=== PATIENT | male | born 1960 | race African-American/Black ===

== ENCOUNTER 2025-01-05 21:05 | Inpatient (IN) | payer MEDICAID ==
[~2025-01-05] VITALS: Ht 185.4 cm; Wt 95.3 kg
[2025-01-05 21:15] VITALS: BP 153/89; PULSE 75; RESP 18; TEMP 36.4; O2SAT 98
[2025-01-05 21:30] VITALS: BP 153/75; PULSE 75; RESP 18; TEMP 36.4736
[2025-01-05] MEDS ORDERED: DOCUSATE SODIUM 250MG CAPSULE PO PRN (22:00)
[2025-01-05] MEDS ORDERED: SENNOSIDES/DOCUSATE SOD 8.6/50MG TABLET PO PRN (22:00)
[2025-01-06 06:21] LABS: BASOPHILS % 0.4 % (0.0-2.0); EOSINOPHILS % 0.5 % (0.0-5.0); HEMATOCRIT. 44.0 % (42.0-52.0); HEMOGLOBIN. 14.5 g/dL (14.0-18.0); LYMPHOCYTES % 19.3 % (20.0-50.0); MEAN PLATELET VOLUME 8.4 fl (7.4-10.4); MONOCYTES % 9.3 % (2.0-8.0); NEUTROPHILS % 70.5 % (40.0-76.0); PLATELET 192 x1000/uL (130-400); RED BLOOD CELL COUNT 5.17 mill/uL (4.7-6.1); RED CELL DISTRIBUTION WIDTH 14.1 % (11.6-14.6)
[2025-01-06 06:24] LABS: CREATININE 1.2 mg/dL (0.6-1.3)
[2025-01-06 06:25] LABS: UREA NITROGEN BLOOD 16 mg/dL (9-23)
[2025-01-06 06:26] LABS: ASPARTATE AMINOTRANSFERASE 26 IU/L (<34)
[2025-01-06 06:27] LABS: BILIRUBIN TOTAL 1.7 mg/dL (0.1-1.0); PROTEIN TOTAL 6.9 g/dL (6.0-8.3)
[2025-01-06 08:00] VITALS: BP 157/105; PULSE 97; RESP 17; TEMP 36.1; O2SAT 97
[2025-01-06] MEDS: CLOPIDOGREL 75MG TABLET PO SCH (08:47)
[2025-01-06] MEDS: ASPIRIN 81MG TABLET PO SCH (08:48)
[2025-01-06] MEDS: LISINOPRIL 5MG TABLET PO SCH (08:48)
[2025-01-06] MEDS: HEPARIN 5000 UNITS/ML VIAL SUBCUT SCH ×2 (11:12→19:10)
[2025-01-06 20:00] VITALS: BP 134/96; PULSE 82; RESP 20; TEMP 36.9; O2SAT 98
[2025-01-06] MEDS: ATORVASTATIN CALCIUM 40MG TABLET PO SCH (20:37)
[2025-01-07 08:00] VITALS: BP 140/93; PULSE 97; RESP 18; TEMP 36.6; O2SAT 97
[2025-01-07 09:12] LABS: BASOPHILS % 0.5 % (0.0-2.0); EOSINOPHILS % 0.3 % (0.0-5.0); HEMATOCRIT. 46.2 % (42.0-52.0); HEMOGLOBIN. 15.0 g/dL (14.0-18.0); LYMPHOCYTES % 20.3 % (20.0-50.0); MEAN PLATELET VOLUME 8.6 fl (7.4-10.4); MONOCYTES % 7.2 % (2.0-8.0); NEUTROPHILS % 71.7 % (40.0-76.0); PLATELET 194 x1000/uL (130-400); RED BLOOD CELL COUNT 5.39 mill/uL (4.7-6.1); RED CELL DISTRIBUTION WIDTH 13.8 % (11.6-14.6)
[2025-01-07 09:30] LABS: CREATININE 1.3 mg/dL (0.6-1.3); TRIGLYCERIDE 100 mg/dL (0-150); UREA NITROGEN BLOOD 18 mg/dL (9-23); VITAMIN B12 SERUM 1513 pg/mL (211-911)
[2025-01-07 09:31] LABS: FOLIC ACID (FOLATE) SERUM 13.99 ng/mL (>5.38); LDL CHOLESTEROL 112 mg/dL (5-100)
[2025-01-07 09:32] LABS: ASPARTATE AMINOTRANSFERASE 22 IU/L (<34); BILIRUBIN DIRECT 0.5 mg/dL (<=3.0); BILIRUBIN TOTAL 1.7 mg/dL (0.1-1.0); PROTEIN TOTAL 7.5 g/dL (6.0-8.3)
[2025-01-07] MEDS: THIAMINE HCL 100MG TABLET PO SCH (09:44)
[2025-01-07] MEDS: FOLIC ACID 1MG TABLET PO SCH (09:44)
[2025-01-07 18:01] VITALS: BP 142/95; PULSE 80
[2025-01-07] MEDS: ATORVASTATIN CALCIUM 40MG TABLET PO SCH (21:53)
[2025-01-07] MEDS: MELATONIN 3MG TABLET PO SCH (21:53)
[2025-01-07] MEDS: LISINOPRIL 5MG TABLET PO SCH (21:54)
[2025-01-08 07:19] LABS: ASPARTATE AMINOTRANSFERASE 30 IU/L (<34)
[2025-01-08 07:20] LABS: BILIRUBIN DIRECT 0.4 mg/dL (<=3.0); BILIRUBIN TOTAL 1.5 mg/dL (0.1-1.0); PROTEIN TOTAL 7.0 g/dL (6.0-8.3)
[2025-01-08 08:00] VITALS: BP 141/86; PULSE 84; RESP 18; TEMP 36.5; O2SAT 97
[2025-01-08] MEDS: ERGOCALCIFEROL 50000UNITS CAPSULE PO SCH (13:42)
[2025-01-08 18:07] LABS: HEPATITIS A AB IGM NEGATIVE (Negative)
[2025-01-08 18:08] LABS: HEPATITIS B CORE AB IGM NEGATIVE (Negative); HEPATITIS C AB NON REACTIVE (Neg) (Negative)
[2025-01-08 20:00] VITALS: BP 118/76; PULSE 100; RESP 18; TEMP 36.6; O2SAT 98
[2025-01-09 08:00] VITALS: BP 119/79; PULSE 100; RESP 18; TEMP 36.4; O2SAT 97
[2025-01-09 12:47] LABS: BASOPHILS % 0.3 % (0.0-2.0); EOSINOPHILS % 0.3 % (0.0-5.0); HEMATOCRIT. 45.6 % (42.0-52.0); HEMOGLOBIN. 14.8 g/dL (14.0-18.0); LYMPHOCYTES % 21.4 % (20.0-50.0); MEAN PLATELET VOLUME 8.9 fl (7.4-10.4); MONOCYTES % 7.3 % (2.0-8.0); NEUTROPHILS % 70.7 % (40.0-76.0); PLATELET 227 x1000/uL (130-400); RED BLOOD CELL COUNT 5.34 mill/uL (4.7-6.1); RED CELL DISTRIBUTION WIDTH 14.0 % (11.6-14.6)
[2025-01-09 13:07] LABS: CREATININE 1.4 mg/dL (0.6-1.3)
[2025-01-09 13:08] LABS: UREA NITROGEN BLOOD 21 mg/dL (9-23)
[2025-01-09 13:09] LABS: ASPARTATE AMINOTRANSFERASE 30 IU/L (<34)
[2025-01-09 13:10] LABS: BILIRUBIN TOTAL 1.4 mg/dL (0.1-1.0); PHOSPHORUS 3.2 mg/dL (2.5-4.9); PROTEIN TOTAL 7.3 g/dL (6.0-8.3)
[2025-01-09 20:00] VITALS: BP 126/78; PULSE 76; RESP 19; TEMP 35.8; O2SAT 97
[2025-01-10 08:00] VITALS: BP 120/72; PULSE 81; RESP 19; TEMP 36.5; O2SAT 95
[2025-01-10 17:21] LABS: BASOPHILS % 0.6 % (0.0-2.0); EOSINOPHILS % 0.4 % (0.0-5.0); HEMATOCRIT. 41.5 % (42.0-52.0); HEMOGLOBIN. 13.7 g/dL (14.0-18.0); LYMPHOCYTES % 23.9 % (20.0-50.0); MEAN PLATELET VOLUME 8.2 fl (7.4-10.4); MONOCYTES % 10.0 % (2.0-8.0); NEUTROPHILS % 65.1 % (40.0-76.0); PLATELET 220 x1000/uL (130-400); RED BLOOD CELL COUNT 4.84 mill/uL (4.7-6.1); RED CELL DISTRIBUTION WIDTH 13.6 % (11.6-14.6)
[2025-01-10 17:34] LABS: CREATININE 1.3 mg/dL (0.6-1.3); UREA NITROGEN BLOOD 23 mg/dL (9-23)
[2025-01-10 20:00] VITALS: BP 126/77; PULSE 75; RESP 18; TEMP 36.4; O2SAT 98
[2025-01-10 21:50] LABS: CLARITY URINE CLEAR (CLEAR); COLOR URINE YELLOW (YELLOW); GLUCOSE URINE NEGATIVE (NEGATIVE); KETONES URINE NEGATIVE (NEGATIVE); LEUKOCYTE ESTERASE URINE NEGATIVE (NEGATIVE); NITRITE URINE NEGATIVE (NEGATIVE); OCCULT BLOOD URINE NEGATIVE (NEGATIVE); PH URINE 5.5 (4.5-8.0); PROTEIN URINE NEGATIVE (NEGATIVE); SPECIFIC GRAVITY URINE 1.022 (1.005-1.030); UROBILINOGEN URINE 0.2 E.U./dL (0.2-1.0)
[2025-01-11 08:00] VITALS: BP 116/81; PULSE 94; RESP 18; TEMP 35.6; O2SAT 96
[2025-01-11 11:56] LABS: BASOPHILS % 0.6 % (0.0-2.0); EOSINOPHILS % 0.6 % (0.0-5.0); HEMATOCRIT. 45.3 % (42.0-52.0); HEMOGLOBIN. 15.2 g/dL (14.0-18.0); LYMPHOCYTES % 26.4 % (20.0-50.0); MEAN PLATELET VOLUME 9.0 fl (7.4-10.4); MONOCYTES % 7.9 % (2.0-8.0); NEUTROPHILS % 64.5 % (40.0-76.0); PLATELET 235 x1000/uL (130-400); RED BLOOD CELL COUNT 5.31 mill/uL (4.7-6.1); RED CELL DISTRIBUTION WIDTH 13.9 % (11.6-14.6)
[2025-01-11 12:09] LABS: CREATININE 1.5 mg/dL (0.6-1.3); UREA NITROGEN BLOOD 21 mg/dL (9-23)
[2025-01-11 12:11] LABS: ASPARTATE AMINOTRANSFERASE 30 IU/L (<34); BILIRUBIN TOTAL 1.4 mg/dL (0.1-1.0); PROTEIN TOTAL 7.7 g/dL (6.0-8.3)
[2025-01-11] MEDS: POTASSIUM CHLORIDE 20MEQ TABLET SR PO NR (16:14)
[2025-01-11 20:00] VITALS: BP 113/74; PULSE 84; RESP 19; TEMP 36.1; O2SAT 96
[2025-01-12 08:00] VITALS: BP 134/81; PULSE 83; RESP 18; TEMP 36.7; O2SAT 100
[2025-01-12 08:01] LABS: BASOPHILS % 0.4 % (0.0-2.0); EOSINOPHILS % 0.9 % (0.0-5.0); HEMATOCRIT. 40.8 % (42.0-52.0); HEMOGLOBIN. 13.5 g/dL (14.0-18.0); LYMPHOCYTES % 27.8 % (20.0-50.0); MEAN PLATELET VOLUME 8.5 fl (7.4-10.4); MONOCYTES % 10.0 % (2.0-8.0); NEUTROPHILS % 60.9 % (40.0-76.0); PLATELET 220 x1000/uL (130-400); RED BLOOD CELL COUNT 4.80 mill/uL (4.7-6.1); RED CELL DISTRIBUTION WIDTH 13.8 % (11.6-14.6)
[2025-01-12 08:05] LABS: CREATININE 1.3 mg/dL (0.6-1.3); UREA NITROGEN BLOOD 19 mg/dL (9-23)
[2025-01-12 20:00] VITALS: BP 120/78; PULSE 80; RESP 20; TEMP 36.6; O2SAT 95
[2025-01-13 08:00] VITALS: BP 109/76; PULSE 82; RESP 18; TEMP 36.6; O2SAT 98
[2025-01-13 08:50] LABS: BASOPHILS % 0.8 % (0.0-2.0); EOSINOPHILS % 0.8 % (0.0-5.0); HEMATOCRIT. 43.0 % (42.0-52.0); HEMOGLOBIN. 14.1 g/dL (14.0-18.0); LYMPHOCYTES % 27.5 % (20.0-50.0); MEAN PLATELET VOLUME 8.5 fl (7.4-10.4); MONOCYTES % 8.8 % (2.0-8.0); NEUTROPHILS % 62.1 % (40.0-76.0); PLATELET 234 x1000/uL (130-400); RED BLOOD CELL COUNT 5.04 mill/uL (4.7-6.1); RED CELL DISTRIBUTION WIDTH 13.8 % (11.6-14.6)
[2025-01-13 08:58] LABS: CREATININE 1.3 mg/dL (0.6-1.3); UREA NITROGEN BLOOD 17 mg/dL (9-23)
[2025-01-13 08:59] LABS: ASPARTATE AMINOTRANSFERASE 27 IU/L (<34)
[2025-01-13 09:00] LABS: BILIRUBIN TOTAL 1.3 mg/dL (0.1-1.0); PROTEIN TOTAL 6.9 g/dL (6.0-8.3)
[2025-01-13 20:00] VITALS: BP 104/69; PULSE 80; RESP 18; TEMP 36.3; O2SAT 96
[2025-01-14 08:00] VITALS: BP 141/84; PULSE 90; RESP 18; TEMP 36.4; O2SAT 98
[2025-01-14] MEDS ORDERED: FOLI-43 PO (10:00)
[2025-01-14] MEDS ORDERED: CHOL400D7 MT (10:00)
[2025-01-14] MEDS ORDERED: ASPI-1160 PO (10:00)
[2025-01-14] MEDS ORDERED: LIP40 PO (10:00)
[2025-01-14] MEDS ORDERED: CLOP-31 PO (10:00)
[2025-01-14] MEDS ORDERED: THIA100T72 PO (10:00)
[2025-01-14 10:39] VITALS: BP 124/84; PULSE 92; RESP 18; TEMP 97.5
[2025-01-17] MEDS ORDERED: LISI-186 MT (11:35)
== END 2025-01-14 12:20 | disposition home health service (06) | DRG 45 ==
PROVIDERS: ADMIT Physical Medicine & Rehabilitation Spinal Cord Injury Medicine; ATTEND Family Medicine Adult Medicine
DX: I63.9 Cerebral infarction, unspecified (principal); I69.354 Hemiplegia and hemiparesis following cerebral infarction affecting left non-dominant side; N17.9 Acute kidney failure, unspecified; R13.10 Dysphagia, unspecified; E11.9 Type 2 diabetes mellitus without complications; D72.829 Elevated white blood cell count, unspecified; R17 Unspecified jaundice; R47.01 Aphasia; E78.00 Pure hypercholesterolemia, unspecified; R53.81 Other malaise; E87.6 Hypokalemia; I11.9 Hypertensive heart disease without heart failure; E07.9 Disorder of thyroid, unspecified; E55.9 Vitamin D deficiency, unspecified; K76.0 Fatty (change of) liver, not elsewhere classified; M24.522 Contracture, left elbow; R22.1 Localized swelling, mass and lump, neck; R79.89 Other specified abnormal findings of blood chemistry; Z79.899 Other long term (current) drug therapy; Z79.82 Long term (current) use of aspirin; R47.1 Dysarthria and anarthria; R29.810 Facial weakness
CPT/HCPCS: 36415; 70551; 76700; 80048; 80053; 80061; 80076; 81003; 82140; 82306; 82607; 82728; 82746; 83036; 83540; 83550; 83735; 84100; 84134; 84145; 84443; 85025; 86705; 86709; 87340; 92523; 92610; 93005; 93306; 93970; 97110; 97112; 97116; 97162; 97166; 97530; 97535; A4606; A6449; J1644